=== PATIENT | male | born 1940 | race Caucasian/White ===

== ENCOUNTER 2018-08-30 12:45 | Emergency (ER) | payer MEDICARE ==
[2018-08-30 13:03] VITALS: BP 133/73
--- NOTE | 2018-08-30 13:08 | UC ---
Throat Pain/Nasal Mc HPI - HPI Summary HPI Summary: 78 yo male presents with sinus pain/pressure/congestion for the last two weeks. Has a lot of pressure and popping in his ears - L>R. He has not been taking anything OTC. Denies fever, chills, sore throat, cough. - History of Current Complaint Chief Complaint: UCRespiratory Stated Complaint: RESP COMPLAINT Time Seen by Provider: 08/30/18 13:08 Hx Obtained From: Patient Onset/Duration: Gradual Onset Severity: Moderate Pain Intensity: 5 Pain Scale Used: 0-10 Numeric - Allergies/Home Medications Allergies/Adverse Reactions: Allergies Allergy/AdvReac Type Severity Reaction Status Date / Time No Known Allergies Allergy Verified 08/30/18 13:02 PMH/Surg Hx/FS Hx/Imm Hx Endocrine History: Hypothyroidism, Dyslipidemia Cardiovascular History: Hypertension - Surgical History Surgical History: Yes Surgery Procedure, Year, and Place: PROSTATECTOMY, [facility] [place], [facility]. 1984, [place], - Family History Known Family History: Positive: Cardiac Disease - Social History Occupation: Retired Lives: With Family Alcohol Use: None Substance Use Type: None Smoking Status (MU): Never Smoked Tobacco Review of Systems All Other Systems Reviewed And Are Negative: Yes Constitutional: Positive: Negative Skin: Positive: Negative Eyes: Positive: Negative ENT: Positive: Nasal Discharge, Sinus Congestion, Sinus Pain/Tenderness Respiratory: Positive: Negative Cardiovascular: Positive: Negative Gastrointestinal: Positive: Negative Neurovascular: Positive: Negative Neurological: Positive: Negative Psychological: Positive: Negative Physical Exam - Summary Physical Exam Summary: GENERAL: NAD. WDWN. No pain distress. SKIN: No rashes, sores, lesions, or open wounds. HEENT: Head: AT/NC Eyes: EOM intact. Conjunctiva clear without inflammation or discharge. Ears: Hearing grossly normal. TMs intact, no bulging, erythema, or edema. Nose: Nasal mucosa mildly swollen and erythematous with yellow/ clear discharge. TTP maxillary > frontal sinus. Positive post nasal drip Throat: Posterior oropharynx without exudates, erythema, or tonsillar enlargement. Uvula midline. NECK: Supple. Nontender. No lymphadenopathy. CHEST: CTAB. No r/r/w. No accessory muscle use. Breathing comfortably and in no distress. CV: RRR. Without m/r/g. Pulses intact. NEURO: Alert. PSYCH: Age appropriate behavior. Triage Information Reviewed: Yes Vital Signs: Initial Vital Signs Temp 98.4 F 08/30/18 12:57 Pulse 82 08/30/18 12:57 Resp 18 08/30/18 12:57 BP 133/73 08/30/18 12:57 Pulse Ox 99 08/30/18 12:57 Vital Signs Reviewed: Yes Throat Pain/Nasal Course/Dx - Course Course Of Treatment: Sinusitis - Differential Dx/Diagnosis Provider Diagnosis: Sinusitis Discharge - Sign-Out/Discharge Documenting (check all that apply): Patient Departure All imaging exams completed and their final reports reviewed: No Studies - Discharge Plan Condition: Stable Disposition: HOME Prescriptions: Amoxicillin PO (*) [Amoxicillin 875 MG (*)] 875 mg PO BID #14 tab Patient Education Materials: Sinusitis (ED) Referrals: Yg Carrera MD [Primary Care Provider] - Additional Instructions: If you develop a fever, shortness of breath, chest pain, new or worsening symptoms - please call your PCP or go to the ED. - Billing Disposition and Condition Condition: STABLE Disposition: Home
== END 2018-08-30 13:25 | disposition home or self-care (01) ==
LOC: UCEAST 12:45
DX: J32.9 Chronic sinusitis, unspecified (principal); I10 Essential (primary) hypertension
CPT/HCPCS: 99212; G0463

== ENCOUNTER 2019-09-12 18:57 | Emergency (ER) | payer MEDICARE ==
--- NOTE | 2019-09-12 19:10 | ED ---
Abdominal Pain/Male - HPI Summary HPI Summary: 79 year old M presenting to [facility] with a chief complaint of right lower quadrant pain secondary to a hernia since 7 days ago, worse since today. Patient reports vomiting and chills today. The patient rates the pain 7/10 in severity. Symptoms aggravated by nothing. Symptoms alleviated by nothing. Patient denies any cough or shortness of breath. He has an appointment with Dr. Carrera tomorrow. He has a history of prostate surgery. Medication list reviewed. Allergy list reviewed. - History of Current Complaint Chief Complaint: EDAbdPain Stated Complaint: VOMMITING AND STOMACH PAIN PER PT Time Seen by Provider: 09/12/19 19:02 Hx Obtained From: Patient Onset/Duration: Lasting Days Timing: Constant Severity Currently: Moderate Pain Intensity: 7 Pain Scale Used: 0-10 Numeric Location: Discrete At: RLQ Aggravating Factor(s): Nothing Alleviating Factor(s): Nothing Associated Signs And Symptoms: Positive: Negative - Shortness of breath, Vomiting, Other - Chills. Negative: Cough - Allergies/Home Medications Allergies/Adverse Reactions: Allergies Allergy/AdvReac Type Severity Reaction Status Date / Time No Known Allergies Allergy Verified 09/12/19 19:01 Home Medications: Home Medications Atorvastatin* [Lipitor 40 MG*] 40 mg PO DAILY 05/17/13 [History Confirmed ] Clopidogrel TAB* [Plavix TAB*] 75 mg PO EVERY OTHER DAY 05/17/13 [History Confirmed 09/12/19] Aspirin EC TAB* [Ecotrin EC Low Dose 81 MG*] 81 mg PO DAILY 09/12/19 [History Confirmed 09/12/19] Atorvastatin* [Lipitor*] 20 mg PO DAILY 09/12/19 [History Confirmed 09/12/19] Fluticasone/Vilanterol MDI(NF) [Breo Ellipta MDI (NF)] 1 puff INH DAILY [History Confirmed 09/12/19] Levothyroxine TAB* [Synthroid TAB*] 75 mcg PO DAILY 09/12/19 [History Confirmed 09/12/19] Losartan TAB* [Cozaar TAB*] 50 mg PO DAILY 09/12/19 [History Confirmed 09/12/19] Metoprolol Succinate XL TAB* [Toprol XL TAB*] 12.5 mg PO DAILY 09/12/19 [ History Confirmed 09/12/19] PMH/Surg Hx/FS Hx/Imm Hx Endocrine/Hematology History: Reports: Hx Thyroid Disease Cardiovascular History: Reports: Hx Coronary Artery Disease, Hx Hypertension Denies: Other Cardiovascular Problems/Disorders Respiratory History: Denies: Other Respiratory Problems/Disorders GI History: Denies: Other GI Disorders Sensory History: Reports: Hx Cataracts Denies: Hx Contacts or Glasses, Hx Hearing Aid Opthamlomology History: Reports: Hx Cataracts Denies: Hx Contacts or Glasses Neurological History: Denies: Other Neuro Impairments/Disorders - Cancer History Cancer Type, Location and Year: prostate - Surgical History Surgery Procedure, Year, and Place: PROSTATECTOMY, 2011, [facility]. 1984, [place], Hx Anesthesia Reactions: No Infectious Disease History: No Infectious Disease History: Denies: Traveled Outside the [place] in Last 30 Days - Family History Known Family History: Positive: Cardiac Disease - Social History Alcohol Use: None Substance Use Type: Reports: None Smoking Status (MU): Never Smoked Tobacco Review of Systems Positive: Chills Negative: Shortness Of Breath, Cough Positive: Abdominal Pain, Vomiting All Other Systems Reviewed And Are Negative: Yes Physical Exam - Summary Physical Exam Summary: Appearance: Well-appearing, Well-nourished, lying in bed comfortably Skin: Warm, dry, no obvious rash Eyes: sclera anicteric, no conjunctival pallor HENT: mucous membranes moist, pharynx appears normal Neck: Supple, nontender Respiratory: Clear to auscultation, no signs of respiratory distress Cardiovascular: Normal S1, S2. No murmurs. Normal distal pulses in tibial and radial bilaterally. Abdomen: Normal active bowel sounds present, right sided inguinal hernia that was somewhat tender and firm, with gentle pressure I was able to reduce it. Musculoskeletal: Normal, Strength/ROM Intact Neurological: A&Ox3, awake and alert, mentation is normal, speech is fluent and appropriate Psychiatric: affect is normal, does not appear anxious or depressed Triage Information Reviewed: Yes Vital Signs On Initial Exam: Initial Vitals Temp Pulse Resp BP Pulse Ox 98.0 F 97 16 138/85 99 09/12/19 18:59 09/12/19 18:59 09/12/19 18:59 09/12/19 18:59 09/12/19 18:59 Vital Signs Reviewed: Yes Procedures - Sedation Patient Received Moderate/Deep Sedation with Procedure: No Diagnostics - Vital Signs Vital Signs Temp Pulse Resp BP Pulse Ox 09/12/19 18:59 98.0 F 97 16 138/85 99 - Laboratory Lab Statement: Any lab studies that have been ordered have been reviewed, and results considered in the medical decision making process. Abdominal Pain Male Course/Dx - Course Course Of Treatment: 79 year old M presenting to [facility] with a chief complaint of right lower quadrant pain secondary to a hernia since 7 days ago, worse since today. Patient reports vomiting and chills today. We discussed patient care with Dr. Owens at 19:14 who recommended the patient follow up in the office tomorrow. Patient will be discharged with follow up from Dr. Owens. The patient is agreeable with this plan. - Diagnoses Provider Diagnoses: Right inguinal hernia - Provider Notifications Discussed Care Of Patient With: Cj Owens Time Discussed With Above Provider: 19:14 Instructed by Provider To: Other - Discussed with Dr. Owens who said that the patient can follow up in the office tomorrow. Discharge ED - Sign-Out/Discharge Documenting (check all that apply): Patient Departure - Discharge Plan Condition: Improved Disposition: HOME Patient Education Materials: Inguinal Hernia (ED) Referrals: Cj Owens MD [Medical Doctor] - Additional Instructions: Call Dr. Owens' office in the morning, he took your name and his office staff will likely be expecting your call. He or one of his surgical colleagues will meet with you and should be able to schedule your surgery later this week. In the meantime, if the hernia comes out and does not slide back in on its own, lie down flat and apply gentle pressure. It will often reduce (go back in) with this, just as I did it here. If this doesn't work particularly if you develop severe pain and/or vomiting, contact Dr. Owens' office and the agronomy instructor doctor will help you. - Attestation Statements Document Initiated by Brianaibe: Yes Documenting Scribe: Marcela Harvey Provider For Whom Beatrice is Documenting (Include Credential): Agus Holguin MD Scribe Attestation: I, Marcela Harvey, scribed for Agus Holguin MD on 09/12/19 at 1937. Status of Scribe Document: Ready
[2019-09-12 19:53] VITALS: BP 167/89
== END 2019-09-12 19:52 | disposition home or self-care (01) ==
LOC: ED 18:57
DX: K40.90 Unilateral inguinal hernia, without obstruction or gangrene, not specified as recurrent (principal); R10.9 Unspecified abdominal pain; R11.10 Vomiting, unspecified
CPT/HCPCS: 99282

== ENCOUNTER 2019-10-23 04:00 | Observation (INO) ==
[2019-10-23] MEDS ORDERED: fentaNYL 100 mcg/2 ml 50 MCG/ML VIAL IV SLOW PU ONE (04:15)
[2019-10-23] MEDS ORDERED: fentaNYL 100 mcg/2 ml 50 MCG/ML VIAL ONE (04:33)
[2019-10-23] MEDS ORDERED: Ondansetron 4 mg VIAL 2 MG/ML 2 ml VIAL IV ONE (05:01)
[2019-10-23 05:08] LABS: ABS Lymphocytes 0.7 10^3/ul (1.0-4.8); ABS Monocytes 0.2 10^3/ul (0-0.8); Eosinophil % 0.4 %; Hematocrit 43 % (42-52); Hemoglobin 15.6 g/dL (14.0-18.0); Lymphocyte % 7.9 %; Mean Corpuscular HGB Conc 37 g/dL (31-36); Mean Corpuscular Hemoglobin 33 pg (27-31); Mean Corpuscular Volume 90 fL (80-94); Mean Platelet Volume 7.6 fL (7.4-10.4); Platelet Count 191 10^3/uL (150-450); Red Blood Count 4.72 10^6 /uL (4.18-5.48); Red Cell Distribution Width 13 % (10-15); White Blood Count 9.3 10^3/uL (3.5-10.8)
[2019-10-23 05:19] LABS: ALT 24 U/L (7-52); AST 24 U/L (13-39); Albumin 4.4 g/dL (3.2-5.2); Albumin/Globulin Ratio 1.8 (1-3); Alkaline Phosphatase 73 U/L (34-104); Anion Gap 6 mmol/L (2-11); BUN/Creatinine Ratio 15.9 (8-20); Blood Urea Nitrogen 17 mg/dL (6-24); C Reactive Protein < 1.00 mg/L (<8.01); CO2 Carbon Dioxide 30 mmol/L (22-32); Calcium 9.6 mg/dL (8.6-10.3); Chloride 100 mmol/L (101-111); EGFR African American 80.7 (>60); EGFR Non-African American 66.7 (>60); Globulin 2.4 g/dL (2-4); Glucose 131 mg/dL (70-100); Potassium 4.2 mmol/L (3.5-5.0); Sodium 136 mmol/L (135-145); Total Protein 6.8 g/dL (6.4-8.9)
[2019-10-23] MEDS ORDERED: Iohexol 300 (CONTRAST) 10 ML SDV IV ONE (05:24)
[2019-10-23 06:05] LABS: Urine Appearance Cloudy; Urine Bilirubin Negative (Negative); Urine Blood Negative (Negative); Urine Color Yellow; Urine Glucose Negative (Negative); Urine Ketones 1+ (Negative); Urine Nitrite Negative (Negative); Urine Protein 1+(30 mg/dL) (Negative); Urine Specific Gravity 1.021 (1.010-1.030); Urine Urobilinogen Negative (Negative)
[2019-10-23 06:20] LABS: Urine Bacteria Absent (Absent); Urine Red Blood Cell Absent (Absent); Urine Squamous Epithelial Cell Present (Absent); Urine White Blood Cell Trace(0-5/hpf) (Absent)
[2019-10-23] MEDS ORDERED: Morphine 4 MG/ML VIAL (1 ml) IV ONE (07:49)
[2019-10-23] MEDS ORDERED: A lbuterol Hfa (PREPAK) 1 MDI - ED TAKE HOME DISPENSING ONLY INHH PRN (09:29)
[2019-10-23] MEDS ORDERED: Albuterol/Ipratropium NEB.SOL (2.5/0.5 MG) 3 ML NEB.SOLN INH PRN (09:31)
[2019-10-23] MEDS ORDERED: Ondansetron 4 mg VIAL 2 MG/ML 2 ml VIAL IV PRN (09:32)
[2019-10-23] MEDS ORDERED: Morphine 2 MG/ML SYRINGE IV PRN (10:16)
[2019-10-23] MEDS: Lactated Ringers 1000 ml BAG 1,000 ML IV SCH ×2 (11:58→21:58)
[2019-10-24] MEDS ORDERED: Midazolam 5 mg/5 ml VIAL 1 mg/ml 5 ml VIAL (5 mg) IV SLOW PU SCH
[2019-10-24] MEDS ORDERED: Bupivacaine 0.25% EPI 200,000 30 ML SDV INJ SCH
[2019-10-24] MEDS ORDERED: fentaNYL 100 mcg/2 ml 50 MCG/ML VIAL IV SCH ×2
[2019-10-24] MEDS ORDERED: Acetaminophen IV 1 GM/100ML 100 ML IVPB SCH
[2019-10-24] MEDS ORDERED: Ketamine HCL 50 mg/ml 10 ml VIAL (500 MG) IV SCH
[2019-10-24] MEDS ORDERED: Propofol 10 MG/ML 20 ML BTL IV SCH
[2019-10-24] MEDS ORDERED: Metoprolol Tartrate 5 mg VIAL 5 ml VIAL (1 mg/ml) IV SCH
[2019-10-24] MEDS ORDERED: Lidocaine 2% PF 5 ML VIAL IV SCH
[2019-10-24] MEDS: Lactated Ringers 1000 ml BAG 1,000 ML IV SCH ×4 (08:01→20:23)
[2019-10-24] MEDS ORDERED: Ondansetron ODT 4 mg TAB 4 MG TAB ONE (13:01)
[2019-10-24] MEDS ORDERED: ceFAZolin 2 GM PREMIX in ORs 2 GM/50 ML BAG ONE (13:01)
[2019-10-24] MEDS ORDERED: Famotidine IV 10 MG/ML 2 ml VIAL (20 mg) ONE (13:02)
[2019-10-24] MEDS ORDERED: Ondansetron ODT 4 mg TAB 4 MG TAB PO ONE (13:04)
[2019-10-24] MEDS ORDERED: Famotidine IV 10 MG/ML 2 ml VIAL (20 mg) IV ONE (13:04)
[2019-10-24] MEDS ORDERED: Naloxone 0.4 mg VIAL 0.4 mg/ml 1 ml VIAL IV PRN (17:37)
[2019-10-24] MEDS ORDERED: oxyCODONE/Acetamin 5/325 mg TAB PO PRN (17:37)
[2019-10-24] MEDS ORDERED: Prochlorperazine 5 mg/ml 2 ml VIAL (10 mg) IV PRN (17:37)
[2019-10-24] MEDS ORDERED: HYDROmorphone 1 MG/1 ML SYRINGE IV PRN (17:37)
[2019-10-24] MEDS ORDERED: DiMENhydriNATE IV 50 mg/ml 1 ml VIAL IV PUSH PRN (17:37)
[2019-10-24] MEDS: fentaNYL 100 mcg/2 ml 50 MCG/ML VIAL IV PRN ×4 (17:40→18:32)
[2019-10-24] MEDS ORDERED: DiMENhydriNATE IV 50 mg/ml 1 ml VIAL ONE (17:55)
[2019-10-25] MEDS: Lactated Ringers 1000 ml BAG 1,000 ML IV SCH (04:44)
[2019-10-25 07:26] VITALS: BP 116/62
== END 2019-10-25 09:30 | disposition home or self-care (01) ==
LOC: SSU 04:00 → ED 04:00 → SSU 11:03
PROVIDERS: ADMIT Surgery; ATTEND Surgery